=== PATIENT | male | born 2000 | race African-American/Black ===

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

== ENCOUNTER 2020-02-19 14:04 | Emergency (ER) | payer SELFPAY ==
[~2020-02-19] VITALS: Ht 185.4 cm; Wt 68.1 kg
[~2020-02-19 14:04] MED LIST: ACET325T9 PO; GUAI-108 PO; IBUP-1027 PO
[2020-02-19 14:10] VITALS: BP 128/80
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
== END 2020-02-19 15:05 | disposition home or self-care (01) ==
LOC: ER 14:04
DX: H11.31 Conjunctival hemorrhage, right eye (principal)
CPT/HCPCS: 70486; 99284

== ENCOUNTER 2020-02-22 19:13 | Emergency (ER) | payer SELFPAY ==
[~2020-02-22] VITALS: Ht 185.4 cm; Wt 68.1 kg
[2020-02-22 19:20] VITALS: BP 151/98
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
== END 2020-02-22 20:05 | disposition left against medical advice (07) ==
LOC: ER 19:13
DX: S05.12XA Contusion of eyeball and orbital tissues, left eye, initial encounter (principal); S05.11XA Contusion of eyeball and orbital tissues, right eye, initial encounter; S20.319A Abrasion of unspecified front wall of thorax, initial encounter; S10.91XA Abrasion of unspecified part of neck, initial encounter; Y08.89XA Assault by other specified means, initial encounter; Y93.89 Activity, other specified; Y92.89 Other specified places as the place of occurrence of the external cause; Y99.8 Other external cause status
CPT/HCPCS: 99284